=== PATIENT | female | born 1990 | race Caucasian/White ===

== ENCOUNTER → 2018-12-16 14:00 | Outpatient (CLI) | payer BC, SELFPAY ==
[2014-06-01 19:28] VITALS: BMI 22.6
[2018-12-16 14:27] LABS: Hematocrit 40.5 % (37-47); Hemoglobin 12.9 g/dl (12.0-15.0); Mean Corp Hgb Conc 31.9 g/gl (32-36); Mean Corpuscular Hgb 29.9 pg (27.0-32.0); Mean Platelet Vol. 9.8 fl (6.2-12.0); Platelet Count 289 K/mm3 (150-450); RBC Distribution Width SD 43.2 fl (35.1-43.9); Red Blood Count 4.31 M/mm3 (4.2-5.4); White Blood Count 7.3 K/mm3 (4.4-11.0)
[2018-12-16 14:29] LABS: Scan Indicated on CBC? Y/N NO
[2018-12-16 14:45] LABS: ALB/GLOB Ratio 0.8 RATIO (0.9-2.4); AST(SGOT) 12 U/L (15-37); Alanine Aminotransfer ALT/SGPT 23 U/L (13-56); Albumin, Serum 3.8 g/dL (3.2-5.0); Alkaline Phosphatase 97 U/L (45-117); Anion Gap 8 (5-15); BUN 15 mg/dL (7-18); Calcium,Total 8.5 mg/dL (8.5-10.1); Chloride 108 mmol/L (98-107); Cholesterol 144 mg/dL (200); Creatinine, Serum 0.79 mg/dL (0.55-1.02); EST Glomerular Filtration Rate 93 mL/min (>60); Est Glom Filt Rate - Afr Amer 113 mL/min (>60); Free T3 2.9 pg/mL (2.18-3.98); Globulin 4.6 g/dL (2.2-4.2); Glucose 82 mg/dL (74-106); High Density Lipoprotein 52 mg/dL; Potassium 3.8 mmol/L (3.5-5.1); Protein, Total 8.4 g/dL (6.4-8.2); Sodium Level 138 mmol/L (136-145); T4 Total, Thyroxin 7.9 ug/dL (4.8-13.9); Thyroid Stim Hormone (TSH) 1.44 uIU/mL (0.358-3.74); Triglycerides 56 mg/dL; Very Low Density Lipoprotein 11 mg/dL (5-40)
[2018-12-16 14:46] LABS: Vitamin D,25 Hydroxy 19.8 ng/mL (29.95-100.01)
== END ==
LOC: LABSPEC 14:09
PROVIDERS: Referring Provider Student in an Organized Health Care Education/Training Program; Visit Provider Student in an Organized Health Care Education/Training Program
DX: Z00.00 Encounter for general adult medical examination without abnormal findings (principal)
CPT/HCPCS: 80053; 80061; 82306; 84436; 84443; 84481; 85027

== ENCOUNTER → 2020-10-29 | Outpatient (CLI) | payer SELFPAY ==
[2014-06-01 19:28] VITALS: BMI 22.6
[2020-10-29 13:36] LABS: Absolute Lymphocyte Count 1.94 X10^3/uL (0.83-4.51); Absolute Neutrophil Count 4.6 X10^3/uL (2.0-7.7); Basophil# 0.05 X10^3/uL; Basophil% 0.7 % (0-1); Eosinophil# 0.09 X10^3/uL; Eosinophils% 1.3 % (0-5); Hematocrit 40.6 % (37-47); Hemoglobin 13.1 g/dL (12.0-15.0); Lymphocyte # 1.94 X10^3/ul (4.0); Lymphocyte % 27.1 % (19-41); Mean Corp Hgb Conc 32.3 g/dL (32-36); Mean Corpuscular Hgb 29.8 pg (27.0-32.0); Mean Corpuscular Volume 92.3 fL (81-99); Mean Platelet Vol. 9.9 fl (6.2-12.0); Monocyte# 0.48 X10^3/uL; Monocyte% 6.7 % (0-10); NRBC Flagged by Analyzer 0 % (0-5); Neutrophil # 4.58 X10^3/uL (2.7-7.7); Neutrophil % 63.8 % (47-70); Platelet Count 364 K/mm3 (150-450); RBC Distribution Width CV 12.5 % (11.6-14.6); RBC Distribution Width SD 42.6 fl (35.1-43.9); White Blood Count 7.2 K/mm3 (4.4-11.0)
[2020-10-29 13:48] LABS: Vitamin D,25 Hydroxy 20.7 ng/mL
[2020-10-29 13:59] LABS: ALB/GLOB Ratio 0.9 RATIO (0.9-2.4); AST(SGOT) 11 U/L (15-37); Alanine Aminotransfer ALT/SGPT 25 U/L (13-56); Albumin, Serum 4.1 g/dL (3.2-5.0); Alkaline Phosphatase 90 U/L (45-117); Anion Gap 8 (5-15); BUN 13 mg/dL (7-18); BUN/Creat Ratio 16.1 RATIO (10-20); Chloride 105 mmol/L (98-107); EST Glomerular Filtration Rate 90 mL/min (>60); Est Glom Filt Rate - Afr Amer 109 mL/min (>60); Free T3 2.9 pg/mL (2.18-3.98); Globulin 4.5 g/dL (2.2-4.2); Glucose 83 mg/dL (74-106); Potassium 3.5 mmol/L (3.5-5.1); Protein, Total 8.6 g/dL (6.4-8.2); Sodium Level 137 mmol/L (136-145); T4 Free Direct 1.17 ng/dL (0.76-1.46); Thyroid Stim Hormone (TSH) 0.43 uIU/mL (0.358-3.74)
[2020-10-30 10:22] LABS: Thyroid Peroxidase AB 39 IU/mL (0-34)
== END | disposition home or self-care (01) ==
LOC: LABSPEC 12:52
PROVIDERS: Referring Provider Nurse Practitioner Family; Visit Provider Nurse Practitioner Family
DX: Z00.00 Encounter for general adult medical examination without abnormal findings (principal); F34.1 Dysthymic disorder; F41.0 Panic disorder [episodic paroxysmal anxiety]; E55.9 Vitamin D deficiency, unspecified; R53.83 Other fatigue; Z13.29 Encounter for screening for other suspected endocrine disorder
CPT/HCPCS: 80053; 82306; 84439; 84443; 84481; 85025; 86376

== ENCOUNTER 2024-06-06 18:49 | Emergency (ER) | payer SELFPAY ==
[2024-06-06 18:50] VITALS: BP 144/91; PULSE 73; RESP 16; TEMP 37.1; O2SAT 99; BMI 33.8
--- NOTE | 2024-06-06 20:26 | ED.RN ---
Pt and mother becoming very angry with having to wait for a room, angry that other people were deemed more critical and sent back before pt. Pt and mother states they are leaving, they will go to another ED.
== END 2024-06-06 20:15 | disposition left against medical advice (07) ==
LOC: ED 20:37
DX: Z53.21 Procedure and treatment not carried out due to patient leaving prior to being seen by health care provider (principal)